=== PATIENT | female | born 1950 | race African-American/Black ===

== ENCOUNTER 2019-01-16 02:32 | Emergency (ER) | payer OTHER ==
[~2019-01-16] VITALS: Ht 167.6 cm; Wt 81.7 kg
[2019-01-16 02:49] LABS: ABSOLUTE NEUTROPHILS 4.9 thou/uL (1.4-8.2); BASOPHILS 1.2 % (0.0-2.0); EOSINOPHILS 3.4 % (0.0-3.0); HEMATOCRIT 32.8 % (37.0-47.0); HEMOGLOBIN 10.9 gm/dL (12.0-15.0); MCH 26.8 pg (26.0-34.0); MCHC 33.1 g/dL (28.0-37.0); MCV 80.9 fL (80.0-100.0); MONOCYTES 9.9 % (1.0-8.0); PLATELET COUNT 183 thou/uL (150-400); POLYS 61.5 % (36.0-66.0); RBC 4.05 mil/uL (4.20-5.00); RDW 13.2 % (10.5-14.5); WBC 7.9 thou/uL (4.0-11.0)
[2019-01-16 02:57] LABS: ANION GAP 5 mmol/L (7-16); BUN 25 mg/dL (7-18); CALCIUM 8.8 mg/dL (8.5-10.1); CHLORIDE 107 mmol/L (98-107); CO2 31 mmol/L (21-32); CREATININE 1.1 mg/dL (0.6-1.0); GLUCOSE 115 mg/dL (74-106); POTASSIUM 4.3 mmol/L (3.5-5.1); SODIUM 143 mmol/L (136-145)
[2019-01-16 03:07] LABS: ALBUMIN 2.8 g/dL (3.4-5.0); MAGNESIUM 1.7 mg/dL (1.8-2.4); SGOT 12 U/L (15-37); SGPT 17 U/L (30-65); TOTAL BILIRUBIN 0.2 mg/dL (<0.1-1.0); TOTAL PROTEIN 6.5 g/dL (6.4-8.2); TROPONIN-I <0.06 ng/mL (<0.06)
[2019-01-16 03:42] LABS: URINE BILIRUBIN NEGATIVE (Negative); URINE BLOOD 2+ (Negative); URINE CLARITY CLEAR; URINE COLOR YELLOW; URINE GLUCOSE-RANDOM* 1+ (Negative); URINE KETONES NEGATIVE (Negative); URINE PROTEIN (DIPSTICK) 3+ (Negative); URINE UROBILINOGEN 0.2 E.U./dl (0.2-1.0)
[2019-01-16 03:49] LABS: URINE LEUKOCYTES-REFLEX 2+ (Negative); URINE NITRITE-REFLEX POSITIVE (Negative)
[2019-01-16 04:00] LABS: BACTERIA-REFLEX >30 Many /HPF (None Seen); CASTS None Seen /LPF (None Seen); CRYSTALS None Seen /LPF (None Seen); MUCUS None Seen strn/LPF (None Seen); SQUAMOUS 0-3 Few /LPF (0-3); TRANSITIONAL EPITHEL CELL >10 Many /LPF (None Seen); URINE WBC-REFLEX >25 Many /HPF (0-5)
[2019-01-16] MEDS ORDERED: VALIUM2 MG PO (04:05)
[2019-01-16] MEDS ORDERED: ANTIVERT25 MG PO (04:05)
[2019-01-16] MEDS ORDERED: KEFLEX500 M1 PO (04:08)
[2019-01-16 04:25] VITALS: BP 148/81
--- NOTE | 2019-01-16 08:49 | EKG ---
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: J : 1950 Requested By: Domingo Romero Order Number: [id number] MD: Daryn Isaac Measurements Intervals Macy Rate: 82 P: 32 DC: 177 QRS: 6 QRSD: 93 T: 93 QT: 425 QTc: 497 Interpretive Statements Sinus rhythm Probable left atrial enlargement Abnormal R-wave progression, early transition Borderline T wave abnormalities Baseline wander in lead(s) I,II,aVR,aVL Electronically Signed On 01-16-2019 8:48:57 CDT by Daryn Isaac [email or web address] ��������������������������������������������� <ELECTRONICALLY SIGNED> ���������������������������������������� By: Daryn Isaac MD ��������������������������������������������� 01/16/19 0848 025 2 Daryn Isaac MD /EMILY
== END 2019-01-16 04:31 | disposition home or self-care (01) ==
LOC: ER 02:32
PROVIDERS: Emergency Medicine
DX: N39.0 Urinary tract infection, site not specified (principal); E88.09 Other disorders of plasma-protein metabolism, not elsewhere classified; L29.9 Pruritus, unspecified; E11.9 Type 2 diabetes mellitus without complications